=== PATIENT | male | born 1970 | race Caucasian/White ===

== ENCOUNTER 2017-05-12 09:38 | Emergency (ER) | payer OTHER ==
[2017-05-12 09:53] VITALS: BP 113/75
--- NOTE | 2017-05-12 11:05 | UC ---
FLU HPI - HPI Summary HPI Summary: COUGH BEGAN FOUR DAYS AGO; YESTERDAY DEVELOPED FEVER, SWEATS, SORE THROAT FATIGUE AND DIZZINESS. DID NOT HAVE FLU SHOT THIS YEAR STATES ' WHENEVER I GET THE SHOT I ALWAYS GET THE FLU'. 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 Onset/Duration: Gradual Onset, Lasting Days Severity Currently: Moderate Severity Initially: Moderate Associated Signs & Symptoms: Positive: Fever, F/C, Myalgia - Risk Factors Influenza Risk Factors: Negative - Allergy/Home Medications Allergies/Adverse Reactions: Allergies Allergy/AdvReac Type Severity Reaction Status Date / Time No Known Allergies Allergy Verified 12/27/14 05:44 Home Medications: Home Medications Multiple Vitamin [Multivitamins] 1 cap PO DAILY 05/12/17 [History Confirmed 12/20] Pzzhmndxbacyv-Sjtaervhdd-Suzry [Nyquil Severe Cold/Flu 5-6.25-10-325 mg/15Ml] 1 dose PO DAILY 05/12/17 [History Confirmed 05/12/17] PMH/Surg Hx/FS Hx/Imm Hx Previously Healthy: Yes - Surgical History Surgical History: None Surgery Procedure, Year, and Place: none - Family History Known Family History: Negative: Respiratory Disease - Social History Occupation: Employed Full-time Lives: With Family Alcohol Use: None Substance Use Type: None Smoking Status (MU): Heavy Every Day Tobacco Smoker - Immunization History Most Recent Influenza Vaccination: none Review of Systems Constitutional: Fever, Chills, Fatigue Skin: Negative Eyes: Negative ENT: Sore Throat, Sinus Congestion, Sinus Pain/Tenderness Respiratory: Cough Cardiovascular: Negative Gastrointestinal: Negative Genitourinary: Negative Motor: Negative Neurovascular: Negative Musculoskeletal: Arthralgia, Myalgia Neurological: Negative Psychological: Negative Is Patient Immunocompromised?: No All Other Systems Reviewed And Are Negative: Yes Physical Exam Triage Information Reviewed: Yes Appearance: No Pain Distress, Well-Nourished, Ill-Appearing Vital Signs: Initial Vital Signs Temp 99.3 F 05/12/17 09:42 Pulse 74 05/12/17 09:42 BP 113/75 05/12/17 09:42 Pulse Ox 98 05/12/17 09:42 Vital Signs Reviewed: Yes Eye Exam: Normal ENT: Positive: Pharynx normal, TMs normal, Hoarse voice Dental Exam: Normal Neck exam: Normal Neck: Positive: Supple, Nontender, No Lymphadenopathy Respiratory Exam: Normal Respiratory: Positive: Chest non-tender, Lungs clear, Normal breath sounds, No respiratory distress, No accessory muscle use Cardiovascular Exam: Normal Cardiovascular: Positive: RRR, No Murmur, Pulses Normal, Brisk Capillary Refill Abdominal Exam: Normal Abdomen Description: Positive: Nontender, No Organomegaly, Soft Musculoskeletal Exam: Normal Musculoskeletal: Positive: Strength Intact, ROM Intact Neurological Exam: Normal Psychological Exam: Normal Skin Exam: Normal Flu Course/Dx - Differential Dx/Diagnosis Differential Diagnosis/HQI/PQRI: Bronchitis, Influenza, Upper Respiratory Infection Provider Diagnoses: INFLUENZA A Discharge - Discharge Plan Condition: Stable Disposition: HOME Prescriptions: Oseltamivir CAP* [Tamiflu CAP*] 75 mg PO BID #10 cap Patient Education Materials: Influenza (ED) Forms: *Work Release Referrals: [facility] [Outside] No Primary Care Phys,NOPCP [Primary Care Provider] -
== END 2017-05-12 10:57 | disposition home or self-care (01) ==
LOC: UCEAST 09:38
DX: J10.1 Influenza due to other identified influenza virus with other respiratory manifestations (principal); F17.210 Nicotine dependence, cigarettes, uncomplicated
CPT/HCPCS: 87502; 99212; G0463

== ENCOUNTER 2017-05-17 13:15 | Emergency (ER) | payer OTHER ==
[2017-05-17 13:39] VITALS: BP 125/65
--- NOTE | 2017-05-17 13:53 | UC ---
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 Here is here today requesting a return to work note for this tuesday. He says he has feeling better overall, but is still very tired. Denies fever, chills, headache, dizziness, SOB, chest pain, abdominal pain, N/V/D/C. He is eating and drinking without difficulty. - History of Current Complaint Chief Complaint: UCRespiratory Stated Complaint: RECHECK FLU SYMPTOMS Time Seen by Provider: 05/17/17 13:53 Hx Obtained From: Patient Severity Initially: Moderate Severity Currently: Mild - Allergies/Home Medications Allergies/Adverse Reactions: Allergies Allergy/AdvReac Type Severity Reaction Status Date / Time No Known Allergies Allergy Verified 12/27/14 05:44 PMH/Surg Hx/FS Hx/Imm Hx Previously Healthy: Yes - Surgical History Surgical History: None Surgery Procedure, Year, and Place: none - Family History Known Family History: Negative: Respiratory Disease - Social History Occupation: Employed Full-time Lives: With Family Alcohol Use: None Substance Use Type: None Smoking Status (MU): Heavy Every Day Tobacco Smoker Cessation Counseling: Counseled 3+Min - 10 Min - Immunization History Most Recent Influenza Vaccination: none Review of Systems Constitutional: Fatigue Skin: Negative Eyes: Negative ENT: Negative Respiratory: Negative Cardiovascular: Negative Gastrointestinal: Negative Genitourinary: Negative Motor: Negative Neurovascular: Negative Neurological: Negative Psychological: Negative All Other Systems Reviewed And Are Negative: Yes Physical Exam Triage Information Reviewed: Yes Appearance: Well-Appearing, Well-Nourished Vital Signs: Initial Vital Signs Temp 98.2 F 05/17/17 13:35 Pulse 76 05/17/17 13:35 Resp 16 05/17/17 13:35 BP 125/65 05/17/17 13:35 Pulse Ox 98 05/17/17 13:35 Vital Signs Reviewed: Yes ENT: Positive: Pharynx normal, TMs normal, Uvula midline. Negative: Pharyngeal erythema, Nasal congestion, Nasal drainage, TM bulging, TM dull, TM red, Tonsillar swelling, Tonsillar exudate, Sinus tenderness Neck: Positive: Supple, Nontender, No Lymphadenopathy Respiratory: Positive: Chest non-tender, Lungs clear, Normal breath sounds, No respiratory distress, No accessory muscle use Cardiovascular: Positive: RRR, No Murmur, Pulses Normal Abdomen Description: Positive: Nontender, No Organomegaly, Soft. Negative: CVA Tenderness (R), CVA Tenderness (L), Distended, Guarding, McBurney's Point Tenderness Bowel Sounds: Positive: Present Musculoskeletal: Positive: Strength Intact, ROM Intact, No Edema Neurological: Positive: Alert, Muscle Tone Normal. Negative: Lethargic Psychological: Positive: Age Appropriate Behavior Skin: Negative: rashes, significant lesion(s) UC Diagnostic Evaluation - Laboratory O2 Sat by Pulse Oximetry: 98 Respiratory Course/Dx - Course Course Of Treatment: Pt states he is feeling better than when initially dx'd. 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 Will provide a note for him to RTW. - Differential Dx/Diagnosis Differential Diagnosis/HQI/PQRI: Influenza Provider Diagnoses: Influenza Discharge - Discharge Plan Condition: Stable Disposition: HOME Patient Education Materials: Influenza (ED) Forms: *Work Release Referrals: No Primary Care Phys,NOPCP [Primary Care Provider] - Additional Instructions: If you develop a fever, SOB, chest pain, new or worsening symptoms - please call your PCP or go to the ED.
== END 2017-05-17 14:10 | disposition home or self-care (01) ==
LOC: UCEAST 13:15
DX: J11.1 Influenza due to unidentified influenza virus with other respiratory manifestations (principal); F17.200 Nicotine dependence, unspecified, uncomplicated
CPT/HCPCS: 99211; G0463

== ENCOUNTER 2017-08-25 13:10 | Emergency (ER) | payer OTHER ==
[2017-08-25 13:36] VITALS: BP 136/80
--- NOTE | 2017-08-25 15:09 | UC ---
Rell Reed Angela, scribed for José Manuel Dickey MD on 08/25/17 at 1339 . General HPI - HPI Summary HPI Summary: This pt is a 47 y/o male presenting to [facility] c/o runny nose, sore throat, fatigue for the last couple of days. Pt additionally reports body aches. He denies SOB, headache, fever. He denies any aggravating or alleviating factors. Pt has PMHx of asthma. He reports tobacco use. - History of Current Complaint Chief Complaint: UCGeneralIllness Stated Complaint: COUGH,SORE THROAT Time Seen by Provider: 08/25/17 13:37 Hx Obtained From: Patient Onset/Duration: Lasting Days, Still Present Timing: Constant Current Severity: Mild Pain Intensity: 1 Pain Location at: throat Aggravating: nothing Alleviating: nothing Associated Signs & Symptoms: Positive: Other - POS: runny nose, sore throat, body aches, fatigue. Negative: Fever, Headache, SOB - Allergy/Home Medications Allergies/Adverse Reactions: Allergies Allergy/AdvReac Type Severity Reaction Status Date / Time No Known Allergies Allergy Verified 08/25/17 13:32 PMH/Surg Hx/FS Hx/Imm Hx Other Endocrine History: DENIES: diabetes Other Cardiovascular History: DENIES: HTN Respiratory History: Asthma - Surgical History Surgical History: None Surgery Procedure, Year, and Place: none - Family History Known Family History: Negative: Cardiac Disease, Hypertension, Diabetes, Respiratory Disease - Social History Alcohol Use: None Substance Use Type: None Smoking Status (MU): Light Every Day Tobacco Smoker Amount Used/How Often: 7cig/day - Immunization History Most Recent Influenza Vaccination: none Review of Systems Constitutional: Fatigue Skin: Negative Eyes: Negative ENT: Sore Throat, Nasal Discharge Respiratory: Negative Cardiovascular: Negative Gastrointestinal: Negative Genitourinary: Negative Motor: Negative Neurovascular: Negative Musculoskeletal: Negative Neurological: Negative Psychological: Negative Is Patient Immunocompromised?: No All Other Systems Reviewed And Are Negative: Yes Physical Exam - Summary Physical Exam Summary: VITAL SIGNS: Reviewed. GENERAL: Patient is a well-developed and nourished male who is lying comfortable in the stretcher. Patient is not in any acute respiratory distress. HEAD AND FACE: Normocephalic EYES: PERRLA, EOMI x 2. EARS: Hearing grossly intact. MOUTH: Oropharynx within normal limits. NECK: Supple, trachea is midline, no adenopathy, no JVD, no carotid bruit. CHEST: Symmetric, no tenderness at palpation LUNGS: Clear to auscultation bilaterally. No wheezing or crackles. CVS: Regular rate and rhythm, S1 and S2 present, no murmurs or gallops appreciated. ABDOMEN: Soft, non-tender. Bowel sounds are normal. No abdominal abnormal pulsations. EXTREMITIES: Full ROM in all major joints, no edema, no cyanosis or clubbing. NEURO: Alert and oriented x 3. No acute neurological deficits. Speech is normal and follows commands. SKIN: Dry and warm Triage Information Reviewed: Yes Vital Signs: Initial Vital Signs Temp 98.5 F 08/25/17 13:32 Pulse 68 08/25/17 13:32 Resp 18 08/25/17 13:32 BP 136/80 08/25/17 13:32 Pulse Ox 98 08/25/17 13:32 Vital Signs Reviewed: Yes Course/Dx - Course Course Of Treatment: This pt is a 47 y/o male presenting to [facility] c/o runny nose , sore throat, fatigue for the last couple of days. Pt additionally reports body aches. He denies SOB, headache, fever. He denies any aggravating or alleviating factors. Pt has PMHx of asthma. He reports tobacco use. Influenza A and B are both negative. Rapid strep test is negative for strep throat. I discussed all the findings and test results with the patient. Pt was instructed to return to the urgent care or go to ER immediately if any of the symptoms return or worsens. Plan of care was discussed with the patient and pt understands and agrees. All questions were answered to patient satisfaction. There were no further complaints or concerns. Pt will be discharged to home with follow up from PCP. Pt is hemodynamically stable, alert and oriented x3. The patient was found to have increased blood pressure in UC. The patient will follow up with PCP for better control of BP. - Differential Dx - Multi-Symptom Provider Diagnoses: Upper respiratory infection Discharge - Sign-Out/Discharge Documenting (check all that apply): Discharge - Discharge Plan Condition: Stable Disposition: HOME Patient Education Materials: Upper Respiratory Infection (ED) Forms: *Work Release Referrals: No Primary Care Phys,NOPCP [Primary Care Provider] - Additional Instructions: FOLLOW UP WITH YOUR PRIMARY CARE PROVIDER WITHIN ONE WEEK FOR HIGH BLOOD PRESSURE NOTED TODAY. RETURN TO URGENT CARE OR THE ED FOR ANY WORSENING OR NEW SYMPTOMS. The documentation as recorded by the Rell fernandes Angela accurately reflects the service I personally performed and the decisions made by me, José Manuel Dickey MD.
== END 2017-08-25 14:50 | disposition home or self-care (01) ==
LOC: UCEAST 13:10
DX: J06.9 Acute upper respiratory infection, unspecified (principal); F17.210 Nicotine dependence, cigarettes, uncomplicated
CPT/HCPCS: 87502; 87651; 99211; G0463